=== PATIENT | female | born 1965 | race Two or more races ===

== ENCOUNTER 2020-02-05 09:58 | Inpatient (IN) | payer MEDICAID, OTHER ==
[~2020-02-05] VITALS: Ht 134.6 cm; Wt 62.1 kg
[2020-02-05] MEDS ORDERED: SODIUM CHLORIDE 0.9% 500 ML IVB ONE (10:26)
[2020-02-05] MEDS ORDERED: ONDANSETRON HCL 4 MG/2 ML VIAL IV ONE (10:30)
[2020-02-05] MEDS ORDERED: MORPHINE SULFATE 4 MG/ML SYR/VIAL IV ONE (10:30)
[2020-02-05 10:47] LABS: Basophils # (auto) 0.1 10 ^3/uL (0-0.2); Basophils % (auto) 0.3 % (0.0-2.0); Eosinophils # (auto) 0 10 ^3/uL (0-0.8); Eosinophils % (auto) 0.2 % (0.0-7.0); Hemoglobin 14.7 g/dL (12.2-16.2); Lymphocytes # (auto) 1.4 10 ^3/uL (0.4-5.4); Lymphocytes % (auto) 7.6 % (10.0-50.0); Mean Corpuscular Hemoglobin 30.4 pg (28.0-32.0); Mean Corpuscular Hgb Conc. 34.3 g/dL (32.0-36.0); Mean Corpuscular Volume 88.5 fL (80.0-100.0); Monocytes % (auto) 5.7 % (0.0-12.0); Neutrophils # (auto) 15.5 10 ^3/uL (1.6-8.6); Neutrophils % (auto) 86.2 % (37.0-80.0); Platelet Count (auto) 237 10^3/uL (140-450); Red Blood Cells 4.85 10^6/uL (4.0-5.20); Red Cell Distribution Width 12.6 % (11.8-14.3)
[2020-02-05] MEDS ORDERED: PIPERACILLIN-TAZOB 3.375GM 100 ML IV ONE (11:00)
[2020-02-05 11:06] LABS: Albumin 3.5 g/dL (3.4-5.0); Calcium 8.8 mg/dL (8.5-10.1); Potassium 3.8 mmol/L (3.5-5.1)
[2020-02-05 11:08] LABS: Urine Bacteria FEW /hpf (None Seen); Urine Blood Negative /uL (Negative); Urine Mucus FEW (None Seen); Urine Specific Gravity 1.027 (1.001-1.035); Urine WBC 74 /hpf (0 - 5)
[2020-02-05 11:09] LABS: BUN/Creatinine Ratio 19.4; Bilirubin, Total 1.8 mg/dL (0.2-1.0); Total Protein 8.1 g/dL (6.4-8.2)
[2020-02-05] MEDS ORDERED: NITROGLYCERIN 0.4 MG SL TAB SL PRN (11:15)
[2020-02-05] MEDS ORDERED: MORPHINE SULF INJ 2 MG/ML SYRINGE 1ML IV PRN (11:15)
[2020-02-05] MEDS ORDERED: ONDANSETRON HCL 4 MG/2 ML VIAL IV PRN (11:15)
[2020-02-05] MEDS: SODIUM CHLORIDE 0.9% 1,000 ML IV SCH ×2 (12:21→19:15)
[2020-02-05] MEDS: metroNIDAZOLE 500MG/100ML 100 ML IV SCH ×2 (14:30→22:00)
[2020-02-05] MEDS ORDERED: PROPOFOL 10 MG/ML 20 ML IV ONE (15:35)
[2020-02-05] MEDS ORDERED: MEPERIDINE HCL (50 MG/ML) 1 ML VIAL ONE (15:35)
[2020-02-05] MEDS ORDERED: ROCURONIUM 10MG/ML 10ML VIAL IV ONE (15:35)
[2020-02-05] MEDS ORDERED: NEOSTIGMINE 1 MG/ML INJ (10mg/10ML VIAL) ONE (15:35)
[2020-02-05] MEDS ORDERED: MIDAZOLAM HCL 1MG/1ML-2 ML VIAL ONE (15:35)
[2020-02-05] MEDS ORDERED: GLYCOPYRROLATE 0.2 MG/ML 1ML VIAL ONE (15:35)
[2020-02-05] MEDS ORDERED: ceFAZolin 1GM VL IV ONE (15:35)
[2020-02-05] MEDS ORDERED: SODIUM CHLORIDE LOCK 10 ML ONE (15:35)
[2020-02-05] MEDS ORDERED: fentaNYL CITRATE 100 MCG/2 ML VL ONE (15:35)
[2020-02-05] MEDS ORDERED: ONDANSETRON HCL 4 MG/2 ML VIAL ONE (15:35)
[2020-02-05 16:09] LABS: INR 1.12 (0.9-1.15)
[2020-02-05] MEDS ORDERED: ceFAZolin 1GM/50ML 50 ML IV ONE (18:19)
[2020-02-05] MEDS ORDERED: fentaNYL CITRATE 100 MCG/2 ML VL IV PRN (18:45)
[2020-02-05] MEDS ORDERED: MORPHINE SULFATE 4 MG/ML SYR/VIAL IV PRN (18:45)
[2020-02-05] MEDS ORDERED: KETOROLAC TROMETH 30 MG/ML 1ML VIAL IV ONE (18:45)
[2020-02-05] MEDS ORDERED: METOCLOPRAMIDE HCL 5MG/ml INJ 2ml VIAL IV PRN (18:45)
[2020-02-05] MEDS ORDERED: HYDROmorphone HCL 2 MG/ML VL IV PRN (18:45)
[2020-02-05] MEDS ORDERED: KETOROLAC TROMETH 60MG/2ML VIAL ONE (20:23)
[2020-02-05 21:50] VITALS: BP 106/61
[2020-02-06] MEDS: SODIUM CHLORIDE 0.9% 1,000 ML IV SCH ×3 (04:53→20:11)
[2020-02-06 05:00] VITALS: BP 91/52
[2020-02-06] MEDS: metroNIDAZOLE 500MG/100ML 100 ML IV SCH ×3 (06:26→22:00)
[2020-02-06 06:33] LABS: Basophils # (auto) 0 10 ^3/uL (0-0.2); Basophils % (auto) 0.2 % (0.0-2.0); Eosinophils # (auto) 0 10 ^3/uL (0-0.8); Eosinophils % (auto) 0.1 % (0.0-7.0); Hemoglobin 12.4 g/dL (12.2-16.2); Lymphocytes # (auto) 1.4 10 ^3/uL (0.4-5.4); Lymphocytes % (auto) 11.9 % (10.0-50.0); Mean Corpuscular Hemoglobin 30.2 pg (28.0-32.0); Mean Corpuscular Hgb Conc. 34.3 g/dL (32.0-36.0); Monocytes # (auto) 0.9 10 ^3/uL (0-1.3); Neutrophils # (auto) 9.3 10 ^3/uL (1.6-8.6); Neutrophils % (auto) 79.8 % (37.0-80.0); Platelet Count (auto) 181 10^3/uL (140-450); Red Blood Cells 4.09 10^6/uL (4.0-5.20); Red Cell Distribution Width 12.5 % (11.8-14.3); White Blood Cell 11.7 10^3/uL (4.4-10.8)
[2020-02-06 06:41] LABS: INR 1.18 (0.9-1.15); Partial Thromboplastin Time 32.1 sec (23.64-32.05)
[2020-02-06 06:50] LABS: Albumin 2.5 g/dL (3.4-5.0); Potassium 3.6 mmol/L (3.5-5.1)
[2020-02-06 06:55] LABS: BUN/Creatinine Ratio 23.9; Bilirubin, Total 2.5 mg/dL (0.2-1.0); Total Protein 6.2 g/dL (6.4-8.2)
[2020-02-06 09:18] VITALS: BP 98/50
[2020-02-06] MEDS: HYDROcodone-ACET 5/325MG TAB PO PRN (11:56)
[2020-02-06 13:23] VITALS: BP 113/56
[2020-02-06] MEDS: levoFLOXacin 500MG 100 ML IV SCH (15:11)
[2020-02-06 17:18] VITALS: BP 98/51
[2020-02-06] MEDS: MORPHINE SULF INJ 2 MG/ML SYRINGE 1ML IV PRN (20:11)
[2020-02-06 22:00] VITALS: BP 109/62
[2020-02-07] MEDS: MORPHINE SULF INJ 2 MG/ML SYRINGE 1ML IV PRN (03:10)
[2020-02-07] MEDS: SODIUM CHLORIDE 0.9% 1,000 ML IV SCH ×2 (03:15→14:22)
[2020-02-07 05:00] VITALS: BP 118/58
[2020-02-07 05:39] LABS: Basophils # (auto) 0 10 ^3/uL (0-0.2); Basophils % (auto) 0.2 % (0.0-2.0); Eosinophils # (auto) 0.1 10 ^3/uL (0-0.8); Eosinophils % (auto) 1.7 % (0.0-7.0); Hematocrit 35.4 % (36.0-46.0); Lymphocytes # (auto) 1.8 10 ^3/uL (0.4-5.4); Lymphocytes % (auto) 20.4 % (10.0-50.0); Mean Corpuscular Hgb Conc. 33.9 g/dL (32.0-36.0); Mean Corpuscular Volume 88.6 fL (80.0-100.0); Monocytes # (auto) 0.6 10 ^3/uL (0-1.3); Monocytes % (auto) 7.1 % (0.0-12.0); Neutrophils # (auto) 6.3 10 ^3/uL (1.6-8.6); Neutrophils % (auto) 70.6 % (37.0-80.0); Platelet Count (auto) 194 10^3/uL (140-450); Red Blood Cells 3.99 10^6/uL (4.0-5.20); Red Cell Distribution Width 12.4 % (11.8-14.3); White Blood Cell 8.9 10^3/uL (4.4-10.8)
[2020-02-07 05:54] LABS: Albumin 2.5 g/dL (3.4-5.0); Calcium 7.9 mg/dL (8.5-10.1); Potassium 3.8 mmol/L (3.5-5.1)
[2020-02-07] MEDS: metroNIDAZOLE 500MG/100ML 100 ML IV SCH ×3 (06:00→23:26)
[2020-02-07 09:00] VITALS: BP 104/60
[2020-02-07] MEDS: levoFLOXacin 500MG 100 ML IV SCH (10:12)
[2020-02-07 13:00] VITALS: BP 114/77
[2020-02-07] MEDS: HYDROcodone-ACET 5/325MG TAB PO PRN (14:34)
[2020-02-07 16:48] VITALS: BP 132/69
[2020-02-07 22:00] VITALS: BP 116/67
[2020-02-08] MEDS: HYDROcodone-ACET 5/325MG TAB PO PRN ×2 (03:57→09:49)
[2020-02-08 05:00] VITALS: BP 117/55
[2020-02-08] MEDS: metroNIDAZOLE 500MG/100ML 100 ML IV SCH ×2 (05:58→14:00)
[2020-02-08] MEDS: SODIUM CHLORIDE 0.9% 1,000 ML IV SCH ×2 (05:58→14:40)
[2020-02-08 09:00] VITALS: BP 114/54
[2020-02-08] MEDS: levoFLOXacin 500MG 100 ML IV SCH (09:49)
[2020-02-08 13:00] VITALS: BP 111/80
[2020-02-08 13:22] VITALS: BP 114/54
== END 2020-02-08 14:31 | disposition home or self-care (01) | DRG 710 ==
LOC: ER 09:58 → TELE-CENTR 09:59 → CENTRAL 02-06 11:07
PROVIDERS: ADMIT Nurse Practitioner Acute Care; ATTEND Internal Medicine
PROC: 0DTJ4ZZ Resection of Appendix, Percutaneous Endoscopic Approach (ICD-10-PCS; principal; 2020-02-05 19:00)
DX: A41.9 Sepsis, unspecified organism (principal); K35.33 Acute appendicitis with perforation, localized peritonitis, and gangrene, with abscess; E66.9 Obesity, unspecified; N30.00 Acute cystitis without hematuria; K66.0 Peritoneal adhesions (postprocedural) (postinfection); K59.00 Constipation, unspecified; Z83.3 Family history of diabetes mellitus; Z68.34 Body mass index [BMI] 34.0-34.9, adult
CPT/HCPCS: 36415; 71046; 74176; 76775; 80053; 81001; 81025; 83690; 85025; 85610; 85730; 86850; 86900; 86901; 88302; 93005; 96361; 96365; 96375; G0378; J0690; J1885; J1956; J2250; J2405; J2543; J2704; J3490

== ENCOUNTER 2020-12-26 14:07 | Emergency (ER) | payer MEDICAID ==
[~2020-12-26] VITALS: Ht 157.5 cm; Wt 65.3 kg
[2020-12-26 14:14] VITALS: BP 141/96
[2020-12-26 15:14] LABS: Basophils # (auto) 0 10 ^3/uL (0-0.2); Basophils % (auto) 0.2 % (0.0-2.0); Eosinophils # (auto) 0 10 ^3/uL (0-0.8); Eosinophils % (auto) 0.3 % (0.0-7.0); Hematocrit 38.4 % (36.0-46.0); Lymphocytes # (auto) 0.7 10 ^3/uL (0.4-5.4); Lymphocytes % (auto) 12.6 % (10.0-50.0); Mean Corpuscular Hemoglobin 33.7 pg (28.0-32.0); Mean Corpuscular Hgb Conc. 36.5 g/dL (32.0-36.0); Mean Corpuscular Volume 92.2 fL (80.0-100.0); Monocytes # (auto) 0.2 10 ^3/uL (0-1.3); Monocytes % (auto) 4.4 % (0.0-12.0); Neutrophils # (auto) 4.6 10 ^3/uL (1.6-8.6); Neutrophils % (auto) 82.5 % (37.0-80.0); Nucleated Red Blood Cells % 0.4 %; Platelet Count (auto) 276 10^3/uL (140-450); Red Blood Cells 4.17 10^6/uL (4.0-5.20); Red Cell Distribution Width 12.6 % (11.8-14.3); White Blood Cell 5.6 10^3/uL (4.4-10.8)
[2020-12-26 15:33] LABS: Albumin 4.1 g/dL (3.4-5.0); Anion Gap 6 (5-15); Blood Alcohol < 3.0 mg/dL (0-5); Blood Urea Nitrogen 10 mg/dL (7-18); Carbon Dioxide 28 mmol/L (21-32); Chloride 107 mmol/L (98-107); Glucose 111 mg/dL (74-106); Potassium 3.6 mmol/L (3.5-5.1); Sodium 141 mmol/L (136-145)
[2020-12-26 15:34] LABS: Salicylate < 1.7 mg/dL (2.8-20.0)
[2020-12-26] MEDS: LORazepam 0.5 MG TAB PO ONE (15:35)
[2020-12-26 15:36] LABS: Acetaminophen < 2.0 ug/mL (10-30)
[2020-12-26 15:37] LABS: Alanine Aminotransferase 46 U/L (13-56); Alkaline Phosphatase 94 U/L (45-117); Aspartate Aminotransferase 25 U/L (15-37); BUN/Creatinine Ratio 17.5; Bilirubin, Total 0.4 mg/dL (0.2-1.0); GFR African American 143 mL/min; GFR Non-African American 118 mL/min; Total Protein 8.1 g/dL (6.4-8.2)
== END 2020-12-26 18:27 | disposition left against medical advice (07) ==
LOC: ER 14:07
DX: R45.851 Suicidal ideations (principal); I10 Essential (primary) hypertension
CPT/HCPCS: 36415; 80053; 80320; 80329; 85025

== ENCOUNTER 2022-01-04 07:03 | Emergency (ER) | payer MEDICAID ==
[~2022-01-04] VITALS: Ht 154.9 cm; Wt 68.0 kg
[2022-01-04] MEDS ORDERED: KETOROLAC TROMETH 60MG/2ML VIAL IM ONE (08:15)
[2022-01-04] MEDS ORDERED: HYDR50CA PO (08:16)
[2022-01-04] MEDS ORDERED: ACET-1158 PO (08:16)
[2022-01-04 08:30] VITALS: BP 156/88
== END 2022-01-04 08:50 | disposition home or self-care (01) ==
LOC: ER 07:03
DX: R51.9 Headache, unspecified (principal); F41.9 Anxiety disorder, unspecified; H93.11 Tinnitus, right ear; K14.6 Glossodynia
CPT/HCPCS: 70450; 96372; 99284; J1885